=== PATIENT | female | born 2000 | race Caucasian/White ===

== ENCOUNTER → 2022-06-01 | Outpatient (CLI) | payer MEDICAID ==
[~2022-06-01] VITALS: Ht 165 cm; Wt 54.0 kg
== END | disposition home or self-care (01) ==
LOC: PREOP 05:28
PROVIDERS: ATTEND Otolaryngology Otolaryngology/Facial Plastic Surgery
DX: Z01.818 Encounter for other preprocedural examination (principal)

== ENCOUNTER 2022-12-17 21:04 | Emergency (ER) | payer MEDICAID ==
[~2022-12-17] VITALS: Ht 167.7 cm; Wt 59.2 kg
[2022-12-17 21:37] LABS: BILIRUBIN,URINE NEGATIVE (NEGATIVE); CLARITY,URINE CLEAR; COLOR,URINE YELLOW; GLUCOSE, URINE (UA) NEGATIVE (NEGATIVE); KETONES,URINE NEGATIVE (NEGATIVE); LEUKOCYTE ESTERASE ,URINE NEGATIVE (NEGATIVE); NITRITE,URINE NEGATIVE (NEGATIVE); PROTEIN,URINE NEGATIVE (NEGATIVE)
[2022-12-17] MEDS ORDERED: LACTATED RINGERS 1,000 ML IV ONE (21:45)
[2022-12-17 21:51] LABS: BACTERIA,URINE NEGATIVE /HPF; SQUAMOUS EPITHELIAL CELL,UR 0-2 /HPF; WBC,URINE 0-2 /HPF
[2022-12-17 21:54] LABS: AMPHETAMINE SCREEN, URINE NEGATIVE (NEGATIVE); BARBITURATE SCREEN URINE NEGATIVE (NEGATIVE); BENZODIAZEPINES SCREEN URINE NEGATIVE (NEGATIVE); CANNABINOID SCREEN, URINE NEGATIVE (NEGATIVE); COCAINE SCREEN URINE NEGATIVE (NEGATIVE); METHADONE STAT NEGATIVE (NEGATIVE); OPIATE SCREEN URINE NEGATIVE (NEGATIVE); OXYCODONE STAT NEGATIVE (NEGATIVE); PROPOXYPHENE STAT NEGATIVE (NEGATIVE); TRICYCLIC ANTIDEPRESSANTS SCRE NEGATIVE (NEGATIVE)
[2022-12-17 21:56] LABS: BASOPHILS % (AUTO) 0 % (0-10); EOSINOPHILS # (AUTO) 0.1 10^3/uL (0.0-0.3); EOSINOPHILS % (AUTO) 3 % (0-10); HEMATOCRIT 37 % (35-52); HEMOGLOBIN 12.9 g/dL (11.5-16.0); LYMPHOCYTES # (AUTO) 2.2 10^3/uL (1.0-4.0); LYMPHOCYTES % (AUTO) 42 % (12-44); MEAN CORPUSCULAR HEMOGLOBIN 31 pg (25-34); MEAN CORPUSCULAR HGB CONC 35 g/dL (32-36); MEAN CORPUSCULAR VOLUME 90 fL (80-99); MEAN PLATELET VOLUME 9.4 fL (9.0-12.2); MONOCYTES # (AUTO) 0.5 10^3/uL (0.0-1.0); MONOCYTES % (AUTO) 10 % (0-12); NEUTROPHILS # (AUTO) 2.4 10^3/uL (1.8-7.8); NEUTROPHILS % (AUTO) 45 % (42-75); PLATELET COUNT 190 10^3/uL (130-400); WHITE BLOOD COUNT 5.3 10^3/uL (4.3-11.0)
[2022-12-17] MEDS ORDERED: NS 100 ML (IVPB) BAG IV ONE (22:00)
[2022-12-17] MEDS ORDERED: HOLD METFORMIN - RECEIVED CONTRAST 20 ML VIAL IV SCH (22:00)
[2022-12-17] MEDS ORDERED: IOHEXOL 350 MG/ML 100 ML (OMNIPAQUE 350) VIAL IV ONE (22:00)
[2022-12-17 22:05] LABS: ALBUMIN 4.4 GM/DL (3.2-4.5)
[2022-12-17 22:06] LABS: POTASSIUM 4.4 MMOL/L (3.6-5.0)
[2022-12-17 22:07] LABS: CALCIUM 9.5 MG/DL (8.5-10.1)
[2022-12-17 22:08] LABS: TOTAL PROTEIN 7.4 GM/DL (6.4-8.2)
[2022-12-17 22:10] LABS: BILIRUBIN,TOTAL 0.3 MG/DL (0.1-1.0)
[2022-12-17 22:12] LABS: CREATININE SERUM 0.94 MG/DL (0.60-1.30)
[2022-12-17] MEDS ORDERED: KETOROLAC 30 MG/ML VIAL IVP ONE (22:15)
[2022-12-17] MEDS ORDERED: DICY20TA PO (23:39)
[2022-12-17] MEDS ORDERED: ONDA4TAB11 PO (23:39)
[2022-12-17] MEDS ORDERED: PANT40TA2 PO (23:39)
--- NOTE | 2022-12-17 23:40 | ED Abdominal Pain ---
General Chief Complaint: Abdominal/GI Problems Stated Complaint: STOMACH PAIN Nursing Triage Note: Patient c/o Upper Abd. pain that started 3 days ago with nausea and vomiting. Patient states she vomited x 1 in 24hrs, but denies any diarrhea. Patient states she took some Pepto with getting some relief. Patient denies anything making her pain worse. Patient states the pain goes around to her back. Patient denies any urinary symptoms, blood in urine, or Hx. of kidney stones. Patient states the pain is a stabbing pain. Source of Information: Patient History of Present Illness Date Seen by Provider: Dec 17, 2022 Allergies and Home Medications Allergies Coded Allergies: No Known Drug Allergies (Unverified , 12/17/22) Past Mxiqjdf-Ivekhe-Vlgalh Hx Patient Social History Tobacco Use?: No Use of E-Cig and/or Vaping dev: Yes E-Cig or Vaping type used: Nicotine Use of E-Cig and/or Vaping Javier: Current Someday User Substance use?: No Alcohol Use?: No Pt feels they are or have been: No Immunizations Up To Date Influenza Vaccine Up-to-Date: No; Not Current Past Medical History Surgery/Hospitalization HX: Anxiety, Depression, mood disorder. Appy Last Menstrual Period: November 22, 2022 Physical Exam Vital Signs Vital Signs - First Documented 12/17/22 21:16 Temp 34.6 Pulse 101 Resp 14 B/P (MAP) 121/81 (94) Pulse Ox 98 O2 Delivery Room Air Capillary Refill : Less Than 3 Seconds Height/Weight/BMI Height: '" Weight: lbs. oz. kg; 21.00 BMI Method: Progress/Results/Core Measures Results/Orders Lab Results Laboratory Tests Test 12/17/22 21:29 12/17/22 21:39 12/17/22 21:49 Range/Units Urine Color YELLOW Urine Clarity CLEAR Urine pH 6.0 5-9 Urine Specific [place] >=1.030 1.016-1.022 Urine Protein NEGATIVE NEGATIVE Urine Glucose (UA) NEGATIVE NEGATIVE Urine Ketones NEGATIVE NEGATIVE Urine Nitrite NEGATIVE NEGATIVE Urine Bilirubin NEGATIVE NEGATIVE Urine Urobilinogen 0.2 < = 1.0 MG/DL Urine Leukocyte Esterase NEGATIVE NEGATIVE Urine RBC (Auto) NEGATIVE NEGATIVE Urine RBC NONE /HPF Urine WBC 0-2 /HPF Urine Squamous Epithelial Cells 0-2 /HPF Urine Crystals NONE /LPF Urine Bacteria NEGATIVE /HPF Urine Casts NONE /LPF Urine Mucus NEGATIVE /LPF Urine Culture Indicated NO Urine Opiates Screen NEGATIVE NEGATIVE Urine Oxycodone Screen NEGATIVE NEGATIVE Urine Methadone Screen NEGATIVE NEGATIVE Urine Propoxyphene Screen NEGATIVE NEGATIVE Urine Barbiturates Screen NEGATIVE NEGATIVE Ur Tricyclic Antidepressants Screen NEGATIVE NEGATIVE Urine Phencyclidine Screen NEGATIVE NEGATIVE Urine Amphetamines Screen NEGATIVE NEGATIVE Urine Methamphetamines Screen NEGATIVE NEGATIVE Urine Benzodiazepines Screen NEGATIVE NEGATIVE Urine Cocaine Screen NEGATIVE NEGATIVE Urine Cannabinoids Screen NEGATIVE NEGATIVE Urine Test NEGATIVE NEGATIVE White Blood Count 5.3 4.3-11.0 10^3/uL Red Blood Count 4.18 3.80-5.11 10^6/uL Hemoglobin 12.9 11.5-16.0 g/dL Hematocrit 37 35-52 % Mean Corpuscular Volume 90 80-99 fL Mean Corpuscular Hemoglobin 31 25-34 pg Mean Corpuscular Hemoglobin Concent 35 32-36 g/dL Red Cell Distribution Width 12.1 10.0-14.5 % Platelet Count 190 130-400 10^3/uL Mean Platelet Volume 9.4 9.0-12.2 fL Immature Granulocyte % (Auto) 0 % Neutrophils (%) (Auto) 45 42-75 % Lymphocytes (%) (Auto) 42 12-44 % Monocytes (%) (Auto) 10 0-12 % Eosinophils (%) (Auto) 3 0-10 % Basophils (%) (Auto) 0 0-10 % Neutrophils # (Auto) 2.4 1.8-7.8 10^3/uL Lymphocytes # (Auto) 2.2 1.0-4.0 10^3/uL Monocytes # (Auto) 0.5 0.0-1.0 10^3/uL Eosinophils # (Auto) 0.1 0.0-0.3 10^3/uL Basophils # (Auto) 0.0 0.0-0.1 10^3/uL Immature Granulocyte # (Auto) 0.0 0.0-0.1 10^3/uL Sodium Level 141 135-145 MMOL/L Potassium Level 4.4 3.6-5.0 MMOL/L Chloride Level 109 H 98-107 MMOL/L Carbon Dioxide Level 26 21-32 MMOL/L Anion Gap 6 5-14 MMOL/L Blood Urea Nitrogen 18 7-18 MG/DL Creatinine 0.94 0.60-1.30 MG/DL Estimat Glomerular Filtration Rate 89 BUN/Creatinine Ratio 19 Glucose Level 87 70-105 MG/DL Calcium Level 9.5 8.5-10.1 MG/DL Corrected Calcium 9.2 8.5-10.1 MG/DL Total Bilirubin 0.3 0.1-1.0 MG/DL Aspartate Amino Transf (AST/SGOT) 20 5-34 U/L Alanine Aminotransferase (ALT/SGPT) 15 0-55 U/L Alkaline Phosphatase 75 40-136 U/L Total Protein 7.4 6.4-8.2 GM/DL Albumin 4.4 3.2-4.5 GM/DL Amylase Level 36 25-125 U/L Lipase 26 8-78 U/L My Orders Orders - MIKAYLA LYONS DO Drug Screen Stat (Urine) (12/17/22 21:28) Ua Culture If Indicated (12/17/22 21:28) Hcg,Qualitative Urine (12/17/22 21:36) Ed Iv/Invasive Line Start (12/17/22 21:44) Amylase (12/17/22 21:44) Cbc With Automated Diff (12/17/22 21:44) Comprehensive Metabolic Panel (12/17/22 21:44) Lipase (12/17/22 21:44) Ed Iv/Invasive Line Start (12/17/22 21:44) Lactated Ringers (Lr 1000 Ml Iv Solution (12/17/22 21:45) Ct Abdomen/Pelvis W (12/17/22 21:54) Iohexol Injection (Omnipaque 350 Mg/Ml 1 (12/17/22 22:00) Received Contrast (Hold Metformin- Contr (12/17/22 22:00) Ns (Ivpb) (Sodium Chloride 0.9% Ivpb Bag (12/17/22 22:00) Ketorolac Injection (Toradol Injection) (12/17/22 22:15) Medications Given in ED Current Medications Medications Dose Ordered Sig/Sterling Route Start Time Stop Time Status Last Admin Dose Admin Iohexol 100 ml ONCE ONCE IV 12/17/22 22:00 12/17/22 22:01 DC 12/17/22 21:57 80 ML Ketorolac Tromethamine 30 mg ONCE ONCE IVP 12/17/22 22:15 12/17/22 22:16 DC 12/17/22 22:27 30 MG Lactated Ringer's 1,000 ml @ 0 mls/hr Q0M ONCE IV 12/17/22 21:45 12/17/22 21:46 DC 12/17/22 22:01 0 MLS/HR Sodium Chloride 100 ml ONCE ONCE IV 12/17/22 22:00 12/17/22 22:01 DC 12/17/22 21:57 80 ML Vital Signs/I&O 12/17/22 21:16 Temp 34.6 Pulse 101 Resp 14 B/P (MAP) 121/81 (94) Pulse Ox 98 O2 Delivery Room Air Blood Pressure Mean: 94 Progress Progress Note : Progress Note SYMPTOM FREE AT DISMISSAL Departure Impression Primary Impression: RUQ abdominal pain Disposition: HOME, SELF-CARE Condition: Improved Departure-Patient Inst. Decision time for Depature: 23:38 Referrals: GIANCARLO WHITTAKER (PCP/Family) Primary Care Physician Patient Instructions: Abdominal Pain, Adult ED Add. Discharge Instructions: CLEAR LIQUIDS--WATER, BROTH, JELLO, GATORADE BRATS DIET--BANANAS, RICE, APPLESAUCE, TOAST, SALTINES FOLLOW UP WITH YOUR DR IN 2-3 DAYS FOR FURTHER CARE--CALL ON MONDAY MORNING TO SCHEDULE AN APPOINTMENT All discharge instructions reviewed with patient and/or family. Voiced underst anding. Scripts Dicyclomine HCl (Dicyclomine HCl) 20 Mg Tablet 20 MG PO Q6H for Abdominal Pain, #20 TAB Prov: MIKAYLA LYONS DO 12/17/22 Ondansetron (Ondansetron Odt) 4 Mg Tab.rapdis 4 MG PO Q4H for Nausea/Vomiting, #10 TAB Prov: MIKAYLA LYONS DO 12/17/22 Pantoprazole Sodium (Protonix) 40 Mg Tablet.dr 40 MG PO DAILY, #15 TAB Prov: MIKAYLA LYONS DO 12/17/22 MIKAYLA LYONS DO Dec 17, 2022 23:39
[2022-12-17 23:50] VITALS: BP 102/72
--- NOTE | 2022-12-18 06:26 | Diagnostic Imaging Report ---
EXAMINATION: CT abdomen and pelvis with intravenous contrast. TECHNIQUE: Multiple contiguous axial images were obtained through the abdomen and pelvis after the uneventful administration of intravenous contrast. All CT scans use one or more of the following dose optimizing techniques: automated exposure control, MA and/or KvP adjustment based on patient size and exam type or iterative reconstruction. HISTORY: Right upper quadrant pain. Nausea and vomiting. COMPARISON: None available. FINDINGS: The heart is unremarkable. The included lung bases are clear. The liver, spleen, pancreas, adrenal glands, and kidneys have a normal appearance. The gallbladder is decompressed. There is no pathologically enlarged mesenteric or retroperitoneal adenopathy. The bowel loops are nondilated. The appendix is surgically absent. There is no free fluid or free air. No acute osseous abnormalities. Ureters and bladder are grossly normal. There is no free air, loculated collection, or adenopathy in the pelvis. IMPRESSION: 1. No acute abnormalities in the abdomen and pelvis. Agree with overnight report. Dictated by: Dictated on workstation # [id number]
== END 2022-12-17 23:50 | disposition home or self-care (01) ==
LOC: EDUNIT# 21:04 → ER 21:07
DX: R10.11 Right upper quadrant pain (principal); F17.290 Nicotine dependence, other tobacco product, uncomplicated; Z28.310 Unvaccinated for COVID-19
CPT/HCPCS: 36415; 74177; 80053; 80306; 81000; 82150; 83690; 84703; 85025

== ENCOUNTER 2022-12-23 20:21 | Emergency (ER) | payer MEDICAID ==
[~2022-12-23] VITALS: Ht 167.7 cm; Wt 59.0 kg
[~2022-12-23 20:21] MED LIST: DICY20TA PO; ONDA4TAB11 PO; PANT40TA2 PO
[2022-12-23] MEDS ORDERED: LACTATED RINGERS 1,000 ML IV ONE ×2 (20:45→22:15)
--- NOTE | 2022-12-23 20:54 | ED GI ---
General Chief Complaint: Abdominal/GI Problems Stated Complaint: VOMITING Nursing Triage Note: c/o vomitting x3 today, burning in abdomen with ambulation today Source of Information: Patient, Old Records History of Present Illness Date Seen by Provider: Dec 23, 2022 Time Seen by Provider: 20:40 Initial Comments PT ARRIVES VIA POV FROM HOME C/O NAUSEA AND VOMITING SINCE LAST NIGHT STATES SHE VOMITED ONCE LAST NIGHT, AND WOKE UP NAUSEATED AND HAS BEEN NAUSEATED ALL DAY, AND THEN STARTED VOMITING AROUND 1700 THIS EVENING, HAS VOMITED X 3 SINCE 1700 TOOK ZOFRAN AT 2000 TONIGHT. 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 SHE STATES "IT FEELS LIKE A TIGHT FIRE EVERY TIME I WALK" NO DIARRHEA NO URINARY SYMPTOMS AND IS VOIDING A NORMAL AMOUNT NO FEVER LMP 11/22/22 PT WAS SEEN HERE 12/17/22 FOR THIS SAME COMPLAINT, AND WAS HAVING EPIGASTRIC AND RUQ PAIN AT THAT TIME WORK UP INCLUDING LAB AND CT SCAN WERE UNREMARKABLE SHE WAS PRESCRIBED ZOFRAN, PROTONIX AND DICYCLOMINE SHE FOLLOWED UP AT [facility] THIS WEEK AND HAD AN ABDOMINAL ULTRASOUND DONE THERE, AND WAS REPORTEDLY NORMAL NO OTHER TESTS WERE DONE, NO RX GIVEN AND NO FOLLOW UP APPOINTMENT MADE. SHE STATES SHE WAS FEELING BETTER UNTIL LAST NIGHT. SHE ATE BBQ PULLED PORK LAST NIGHT AND THEN STARTED HAVING RETURN OF HER SYMPT OMS STATES SHE HAD BEEN FOLLOWING THE RECOMMENDED DIET UNTIL LAST NIGHT. SHE STATES SHE IS ABLE TO KEEP WATER DOWN, BUT FOOD WON'T STAY DOWN SHE DOES C/O DIZZINESS ON STANDING TONIGHT. SHE HAS HAD PRIOR APPENDECTOMY PCP: [facility] Allergies and Home Medications Allergies Coded Allergies: No Known Drug Allergies (Unverified , 12/17/22) Patient Home Medication List Home Medication List Reviewed: Yes Cefdinir (Cefdinir) 300 Mg Capsule, 300 MG PO BID Prescribed by: MIKAYLA LYONS on 12/23/222212 Dicyclomine HCl (Dicyclomine HCl) 20 Mg Tablet, 20 MG PO Q6H Prescribed by: MIKAYLA LYONS on 12/17/22 2339 Metoclopramide HCl (Reglan) 10 Mg Tablet, 10 MG PO Q6H Prescribed by: MIKAYLA LYONS on 12/23/22 221 Ondansetron (Ondansetron Odt) 4 Mg Tab.rapdis, 4 MG PO Q4H Prescribed by: MIKAYLA LYONS on 12/17/222338 Pantoprazole Sodium (Protonix) 40 Mg Tablet.dr, 40 MG PO DAILY Prescribed by: MIKAYLA LYONS on 12/17/222338 Review of Systems Review of Systems Constitutional: no symptoms reported Respiratory: No Symptoms Reported Cardiovascular: No Symptoms Reported Gastrointestinal: See HPI, Abdominal Pain; Denies Diarrhea; Nausea, Vomiting Genitourinary: No Symptoms Reported Musculoskeletal: no symptoms reported Skin: no symptoms reported Psychiatric/Neurological: No Symptoms Reported Endocrine: No Symptoms Reported Hematologic/Lymphatic: No Symptoms Reported Past Eanqowr-Eloqkz-Jmmspu Hx Patient Social History Tobacco Use?: No Substance use?: No Alcohol Use?: No Pt feels they are or have been: No Immunizations Up To Date First/Initial COVID19 Vaccinat: na Past Medical History Surgery/Hospitalization HX: Anxiety, Depression, mood disorder. Appendectomy Surgeries: Yes Appendectomy Respiratory: No Cardiac: No Neurological: No : No Last Menstrual Period: November 22, 2022 Reproductive Disorders: No Genitourinary: No Gastrointestinal: No Musculoskeletal: No Endocrine: No HEENT: No Cancer: No Psychosocial: Yes Anxiety, Depression Integumentary: No Blood Disorders: No Physical Exam Vital Signs Vital Signs - First Documented 12/23/22 20:43 Temp 36.0 Pulse 97 Resp 16 B/P (MAP) 114/74 (87) Pulse Ox 100 O2 Delivery Room Air Capillary Refill : Less Than 3 Seconds Height/Weight/BMI Height: '" Weight: lbs. oz. kg; 20.00 BMI Method: General Appearance: WD/WN, no apparent distress, thin, other (FLAT AFFECT) Neck: normal inspection Respiratory: normal breath sounds, no respiratory distress, no accessory muscle use Cardiovascular: regular rate, rhythm, no murmur Gastrointestinal: normal bowel sounds, soft; No distended, No guarding, No rebound; tenderness (EPIGASTRIC); No hernia, No mass Extremities: normal inspection Back: no CVA tenderness Neurologic/Psychiatric: heel brusher II-XII nml as tested, no motor/sensory deficits, alert, oriented x 3 Skin: normal color, warm/dry; No rash Progress/Results/Core Measures Results/Orders Lab Results Laboratory Tests Test 12/23/22 20:47 12/23/22 20:50 Range/Units Urine Color YELLOW Urine Clarity CLEAR Urine pH 7.0 5-9 Urine Specific [employer] 1.015 L 1.016-1.022 Urine Protein NEGATIVE NEGATIVE Urine Glucose (UA) NEGATIVE NEGATIVE Urine Ketones NEGATIVE NEGATIVE Urine Nitrite NEGATIVE NEGATIVE Urine Bilirubin NEGATIVE NEGATIVE Urine Urobilinogen 1.0 < = 1.0 MG/DL Urine Leukocyte Esterase 1+ H NEGATIVE Urine RBC (Auto) NEGATIVE NEGATIVE Urine RBC RARE /HPF Urine WBC 2-5 /HPF Urine Squamous Epithelial Cells >50 H /HPF Urine Crystals PRESENT H /LPF Urine Amorphous Sediment FEW INOCENCIA URATES H /LPF Urine Bacteria MODERATE H /HPF Urine Casts NONE /LPF Urine Mucus MODERATE H /LPF Urine Other /HPF Urine Culture Indicated YES Urine Opiates Screen NEGATIVE NEGATIVE Urine Oxycodone Screen NEGATIVE NEGATIVE Urine Methadone Screen NEGATIVE NEGATIVE Urine Propoxyphene Screen NEGATIVE NEGATIVE Urine Barbiturates Screen NEGATIVE NEGATIVE Ur Tricyclic Antidepressants Screen NEGATIVE NEGATIVE Urine Phencyclidine Screen NEGATIVE NEGATIVE Urine Amphetamines Screen NEGATIVE NEGATIVE Urine Methamphetamines Screen NEGATIVE NEGATIVE Urine Benzodiazepines Screen NEGATIVE NEGATIVE Urine Cocaine Screen NEGATIVE NEGATIVE Urine Cannabinoids Screen NEGATIVE NEGATIVE White Blood Count 6.4 4.3-11.0 10^3/uL Red Blood Count 4.00 3.80-5.11 10^6/uL Hemoglobin 12.4 11.5-16.0 g/dL Hematocrit 36 35-52 % Mean Corpuscular Volume 91 80-99 fL Mean Corpuscular Hemoglobin 31 25-34 pg Mean Corpuscular Hemoglobin Concent 34 32-36 g/dL Red Cell Distribution Width 12.0 10.0-14.5 % Platelet Count 173 130-400 10^3/uL Mean Platelet Volume 9.2 9.0-12.2 fL Immature Granulocyte % (Auto) 0 % Neutrophils (%) (Auto) 50 42-75 % Lymphocytes (%) (Auto) 40 12-44 % Monocytes (%) (Auto) 7 0-12 % Eosinophils (%) (Auto) 2 0-10 % Basophils (%) (Auto) 1 0-10 % Neutrophils # (Auto) 3.2 1.8-7.8 10^3/uL Lymphocytes # (Auto) 2.6 1.0-4.0 10^3/uL Monocytes # (Auto) 0.5 0.0-1.0 10^3/uL Eosinophils # (Auto) 0.1 0.0-0.3 10^3/uL Basophils # (Auto) 0.0 0.0-0.1 10^3/uL Immature Granulocyte # (Auto) 0.0 0.0-0.1 10^3/uL Sodium Level 140 135-145 MMOL/L Potassium Level 3.9 3.6-5.0 MMOL/L Chloride Level 107 98-107 MMOL/L Carbon Dioxide Level 26 21-32 MMOL/L Anion Gap 7 5-14 MMOL/L Blood Urea Nitrogen 13 7-18 MG/DL Creatinine 0.86 0.60-1.30 MG/DL Estimat Glomerular Filtration Rate 99 BUN/Creatinine Ratio 15 Glucose Level 67 L 70-105 MG/DL Calcium Level 9.6 8.5-10.1 MG/DL Corrected Calcium 9.3 8.5-10.1 MG/DL Total Bilirubin 0.5 0.1-1.0 MG/DL Aspartate Amino Transf (AST/SGOT) 20 5-34 U/L Alanine Aminotransferase (ALT/SGPT) 18 0-55 U/L Alkaline Phosphatase 75 40-136 U/L Total Protein 7.0 6.4-8.2 GM/DL Albumin 4.4 3.2-4.5 GM/DL Amylase Level 57 25-125 U/L Lipase 50 8-78 U/L My Orders Orders - MIKAYLA LYONS DO Ed Iv/Invasive Line Start (12/23/22 20:41) Amylase (12/23/22 20:41) Cbc With Automated Diff (12/23/22 20:41) Comprehensive Metabolic Panel (12/23/22 20:41) Drug Screen Stat (Urine) (12/23/22 20:41) Lipase (12/23/22 20:41) Ua Culture If Indicated (12/23/22 20:41) Ed Iv/Invasive Line Start (12/23/22 20:41) Lactated Ringers (Lr 1000 Ml Iv Solution (12/23/22 20:45) Ondansetron Injection (Zofran Injectio (12/23/22 21:00) Metoclopramide Injection (Reglan Injecti (12/23/22 21:00) Pantoprazole Injection (Protonix Injecti (12/23/22 21:00) Urine Culture (12/23/22 20:47) Ceftriaxone Iv/Im (Rocephin Iv/Im) (12/23/22 22:15) Ed Iv/Invasive Line Start (12/23/22 22:08) Lactated Ringers (Lr 1000 Ml Iv Solution (12/23/22 22:15) Medications Given in ED Current Medications Medications Dose Ordered Sig/Sterling Route Start Time Stop Time Status Last Admin Dose Admin Ceftriaxone Sodium 1000 mg/ Sodium Chloride 50 ml @ 100 mls/hr ONCE ONCE IV 12/23/22 22:15 12/23/22 22:44 DC 12/23/22 22:21 100 MLS/HR Lactated Ringer's 1,000 ml @ 0 mls/hr Q0M ONCE IV 12/23/22 20:45 12/23/22 20:46 DC 12/23/22 20:57 0 MLS/HR Lactated Ringer's 1,000 ml @ 0 mls/hr Q0M ONCE IV 12/23/22 22:15 12/23/22 22:16 DC 12/23/22 22:21 0 MLS/HR Metoclopramide HCl 10 mg ONCE ONCE IVP 12/23/22 21:00 12/23/22 21:01 DC 12/23/22 20:57 10 MG Ondansetron HCl 4 mg ONCE ONCE IVP 12/23/22 21:00 12/23/22 21:01 DC 12/23/22 20:57 4 MG Pantoprazole 40 mg ONCE ONCE IV 12/23/22 21:00 12/23/22 21:01 DC 12/23/22 20:57 40 MG Vital Signs/I&O 12/23/22 12/23/22 20:43 22:50 Temp 36.0 36.2 Pulse 97 89 Resp 16 16 B/P (MAP) 114/74 (87) 92/62 Pulse Ox 100 100 O2 Delivery Room Air Room Air Blood Pressure Mean: 87 Progress Progress Note : Progress Note GIVEN: -IV FLUIDS -ZOFRAN -PROTONIX -REGLAN -ROCEPHIN LABS INCLUDING CBC, CMP, AMYLASE/LIPASE, UA, HCG, ETOH, UDS ORDERED. UA WITH 1+ LEUKOCYTES, MODERATE BACTERIA ALL OTHER LAB IS NORMAL BLOOD PRESSURE DID DROP INTO 90'S SYSTOLIC (ALSO HAD INCORRECT BP CUFF SIZE ON LEFT ARM, AND PT WAS LAYING ON HER RIGHT SIDE) , BUT NO TACHYCARDIA NEW BP CUFF/APPROPRIATE SIZE, AND PT LAID ON HER BACK, WITH IMPROVED BP READINGS. PT STATES SHE FEELS MUCH BETTER--SHE STATES THE REGLAN SEEMS TO HELP MORE THAN THE ZOFRAN. NO VOMITING DURING ER STAY PT IS ANXIOUS TO GO HOME DISCUSSED TEST RESULTS, WILL HAVE PT CONTINUE THE PREVIOUSLY PRESCRIBED MEDICATIONS AND WILL ADD REGLAN, WELL ANTIBIOTIC FOR UTI. DISCUSSED DIET AND ADVISED HER TO STAY ON CLEAR LIQUIDS AND BRATS DIET UNTIL SHE IS RECHECKED DISCUSSED POSSIBLE NEED FOR ADDITIONAL OUTPATIENT TESTS INCLUDING HIDA SCAN AND POSSIBLY AN EGD IF HER SYMPTOMS PERSIST. WILL REFER TO DR. PACHECO, GENERAL SURGEON, FOR FURTHER EVALUATION OF HER SYMPTOMS DISCUSSED RETURN PRECAUTIONS WITH PT REVIEWED PRIOR RECORDS --SINGLE ER VISIT 12/17/22 Departure Impression Primary Impression: Epigastric abdominal pain Additional Impressions: Nausea and vomiting Urinary tract infection Dehydration Disposition: 01 HOME, SELF-CARE Condition: Improved Departure-Patient Inst. Decision time for Depature: 22:10 Referrals: TOD PACHECO AMBER D ARNP (PCP) Primary Care Physician Patient Instructions: Abdominal Pain, Adult ED, Nausea and Vomiting, Adult ED, Urinary Tract Infection, Adult (DC), Dehydration, Adult ED Add. Discharge Instructions: CLEAR LIQUIDS, SIPS AT A TIME--WATER, BROTH, JELLO, GATORADE--DRINK ENOUGH SO YOU ARE URINATING EVERY 2-3 HOURS WHILE AWAKE WHEN YOUR NAUSEA IS BETTER, ADD BRATS DIET TO CLEAR LIQUIDS--BANANAS, RICE, APPLESAUCE, TOAST, SALTINES CONTINUE THE ZOFRAN, DICYCLOMINE, AND PROTONIX PRESCRIBED FOLLOW UP WITH DR. PACHECO, SURGEON, NEXT WEEK FOR FURTHER CARE. RETURN TO ER IF SYMPTOMS WORSEN All discharge instructions reviewed with patient and/or family. Voiced understanding. Scripts Cefdinir (Cefdinir) 300 Mg Capsule 300 MG PO BID, #20 CAP Prov: DOMO LYONSA K DO 12/23/22 Metoclopramide HCl (Reglan) 10 Mg Tablet 10 MG PO Q6H for Nausea/Vomiting, #15 TAB Prov: DOMO LYONSA K DO 12/23/22 MIKAYLA LYONS DO Dec 23, 2022 20:54
[2022-12-23] MEDS ORDERED: ONDANSETRON 4 MG/2 ML (SDV) Z0FRAN IVP ONE (21:00)
[2022-12-23] MEDS ORDERED: PANTOPRAZOLE 40 MG (PROTONIX) VIAL IV ONE (21:00)
[2022-12-23] MEDS ORDERED: METOCLOPRAMIDE INJ 10 MG/2 ML (REGLAN) IVP ONE (21:00)
[2022-12-23 21:01] LABS: BILIRUBIN,URINE NEGATIVE (NEGATIVE); CLARITY,URINE CLEAR; COLOR,URINE YELLOW; GLUCOSE, URINE (UA) NEGATIVE (NEGATIVE); KETONES,URINE NEGATIVE (NEGATIVE); LEUKOCYTE ESTERASE ,URINE 1+ (NEGATIVE); NITRITE,URINE NEGATIVE (NEGATIVE); PROTEIN,URINE NEGATIVE (NEGATIVE)
[2022-12-23 21:07] LABS: BASOPHILS % (AUTO) 1 % (0-10); EOSINOPHILS # (AUTO) 0.1 10^3/uL (0.0-0.3); EOSINOPHILS % (AUTO) 2 % (0-10); HEMATOCRIT 36 % (35-52); HEMOGLOBIN 12.4 g/dL (11.5-16.0); LYMPHOCYTES # (AUTO) 2.6 10^3/uL (1.0-4.0); LYMPHOCYTES % (AUTO) 40 % (12-44); MEAN CORPUSCULAR HEMOGLOBIN 31 pg (25-34); MEAN CORPUSCULAR HGB CONC 34 g/dL (32-36); MEAN CORPUSCULAR VOLUME 91 fL (80-99); MEAN PLATELET VOLUME 9.2 fL (9.0-12.2); MONOCYTES # (AUTO) 0.5 10^3/uL (0.0-1.0); MONOCYTES % (AUTO) 7 % (0-12); NEUTROPHILS # (AUTO) 3.2 10^3/uL (1.8-7.8); NEUTROPHILS % (AUTO) 50 % (42-75); PLATELET COUNT 173 10^3/uL (130-400); WHITE BLOOD COUNT 6.4 10^3/uL (4.3-11.0)
[2022-12-23 21:25] LABS: ALBUMIN 4.4 GM/DL (3.2-4.5); POTASSIUM 3.9 MMOL/L (3.6-5.0)
[2022-12-23 21:25] LABS: AMPHETAMINE SCREEN, URINE NEGATIVE (NEGATIVE); BARBITURATE SCREEN URINE NEGATIVE (NEGATIVE); BENZODIAZEPINES SCREEN URINE NEGATIVE (NEGATIVE); CANNABINOID SCREEN, URINE NEGATIVE (NEGATIVE); COCAINE SCREEN URINE NEGATIVE (NEGATIVE); METHADONE STAT NEGATIVE (NEGATIVE); OPIATE SCREEN URINE NEGATIVE (NEGATIVE); OXYCODONE STAT NEGATIVE (NEGATIVE); PROPOXYPHENE STAT NEGATIVE (NEGATIVE); TRICYCLIC ANTIDEPRESSANTS SCRE NEGATIVE (NEGATIVE)
[2022-12-23 21:26] LABS: CALCIUM 9.6 MG/DL (8.5-10.1)
[2022-12-23 21:29] LABS: BILIRUBIN,TOTAL 0.5 MG/DL (0.1-1.0)
[2022-12-23 21:30] LABS: AMORPHOUS SEDIMENT,UR FEW AMOR URATES /LPF; RBC,URINE RARE /HPF; SQUAMOUS EPITHELIAL CELL,UR >50 /HPF
[2022-12-23 21:31] LABS: CREATININE SERUM 0.86 MG/DL (0.60-1.30)
[2022-12-23 21:33] LABS: BACTERIA,URINE MODERATE /HPF
[2022-12-23] MEDS ORDERED: METO-310 PO (22:13)
[2022-12-23] MEDS ORDERED: CEFD300C3 PO (22:13)
[2022-12-23] MEDS ORDERED: cefTRIAXone IV/IM 1,000 MG in NS (IVPB) 50 ML IV ONE (22:15)
[2022-12-23 22:50] VITALS: BP 92/62
== END 2022-12-23 22:50 | disposition home or self-care (01) ==
LOC: EDUNIT# 20:21 → ER 20:23
DX: N39.0 Urinary tract infection, site not specified (principal); E86.0 Dehydration; R11.2 Nausea with vomiting, unspecified; Z28.310 Unvaccinated for COVID-19; Z90.49 Acquired absence of other specified parts of digestive tract
CPT/HCPCS: 36415; 80053; 80306; 81000; 82150; 83690; 85025; 87088

== ENCOUNTER 2023-04-23 22:07 | Emergency (ER) | payer SELFPAY ==
[~2023-04-23] VITALS: Ht 167.7 cm; Wt 63.5 kg
[~2023-04-23 22:07] MED LIST changes: +CEFD300C3 PO; +CEPH500T PO; +METO-310 PO
[2023-04-23 23:57] LABS: BILIRUBIN,URINE NEGATIVE (NEGATIVE); CLARITY,URINE CLEAR; COLOR,URINE YELLOW; GLUCOSE, URINE (UA) NEGATIVE (NEGATIVE); KETONES,URINE NEGATIVE (NEGATIVE); LEUKOCYTE ESTERASE ,URINE NEGATIVE (NEGATIVE); NITRITE,URINE NEGATIVE (NEGATIVE); PH,URINE 5.5 (5-9); PROTEIN,URINE NEGATIVE (NEGATIVE)
[2023-04-23 23:58] LABS: BACTERIA,URINE MODERATE /HPF
--- NOTE | 2023-04-24 00:40 | ED General ---
General Chief Complaint: - Reproductive Stated Complaint: CRAMPING/VAG BLEEDING/VOMITING/NAUSEA Nursing Triage Note: PT A&OX3; PT AMBULATES TO ROOM WITHOUT ASSISTANCE OF ER STAFF; PT ADVISES THAT SHE HAD HER CONTROL IMPLANT REMOVED APPROX 1 WK AGO; SINCE HAVING IT REMOVED, PT HAS HAD INTERMITTENT CRAMPING, SPOTTING, NAUSEA/VOMITING; PT ALSO REPORTS THAT SHE HAS TAKEN 3 HOME TESTS AND 2 RETURNED POSITIVE BUT THE MOST RECENT WAS NEGATIVE Source of Information: Patient (DARIA BACH) History of Present Illness Date Seen by Provider: Apr 24, 2023 Time Seen by Provider: 11:30 Initial Comments This is a 22 yo female that presents with heavy vaginal bleeding, cramping, nausea, and vomiting for 7 days that started after having nexplanon insertable removed from arm. Vaginal bleeding required changing of pad q2hrs until yesterday when the bleeding turned to spotting. The cramping is constant but pain worsens intermittently. Pt is sexually active with 1 partner for last year and has had unprotected intercourse multiple times in the last week. LMP was 04/07. Pt states that she has had 2 positive at home tests in the last week and 1 negative test most recently. Ibuprofen and Tylenol were tried with minimal relief. Heat pad helps with pain. Cramping pain is rated as 3/10 normally and 7/10 when cramping worsens. Pt has noticed clear/white vaginal discharge with "sour" smell for last 4 days. No history of STI or . Does have h/o UTIs. Denies fever, shortness of breath, sore throat, runny nose, chest pain, diarrhea, constipation, hematuria, hematemesis, hematochezia. Pt has urinary frequency in last week. Timing/Duration: 1 Week Severity: Mild (DARIA BACH) Allergies and Home Medications Allergies Coded Allergies: No Known Drug Allergies (Unverified , 12/17/22) Patient Home Medication List Home Medication List Reviewed: Yes (BINU WU MD) Cefdinir (Cefdinir) 300 Mg Capsule, 300 MG PO BID Prescribed by: MIKAYLA LYONS on 12/23/222212 Cephalexin (Cephalexin) 500 Mg Tablet, 500 MG PO BID Prescribed by: HERNAN ROBERTSON on 04/04/232233 Dicyclomine HCl (Dicyclomine HCl) 20 Mg Tablet, 20 MG PO Q6H Prescribed by: MIKAYLA LYONS on 12/17/222338 Metoclopramide HCl (Reglan) 10 Mg Tablet, 10 MG PO Q6H Prescribed by: MIKAYLA LYONS on 12/23/222212 Ondansetron (Ondansetron Odt) 4 Mg Tab.rapdis, 4 MG PO Q4H Prescribed by: MIKAYLA LYONS on 12/17/222338 Pantoprazole Sodium (Protonix) 40 Mg Tablet.dr, 40 MG PO DAILY Prescribed by: MIKAYLA LYONS on 12/17/222338 Review of Systems Review of Systems Constitutional: see HPI EENTM: see HPI Respiratory: see HPI Cardiovascular: see HPI Gastrointestinal: see HPI Genitourinary: see HPI Musculoskeletal: no symptoms reported Skin: no symptoms reported Psychiatric/Neurological: No Symptoms Reported (DARIA BACH) Past Qtoothe-Jcgsyc-Xwxzhq Hx Patient Social History Tobacco Use?: No Use of E-Cig and/or Vaping dev: Yes E-Cig or Vaping type used: Nicotine Use of E-Cig and/or Vaping Javier: Current Someday User Substance use?: No Alcohol Use?: No Pt feels they are or have been: No (DARIA BACH) Immunizations Up To Date Influenza Vaccine Up-to-Date: No; Not Current First/Initial COVID19 Vaccinat: N/A Second COVID19 Vaccination Maico: na Third COVID19 Vaccination Date: na (DARIA BACH) Past Medical History Surgery/Hospitalization HX: APPENDECTOMY Surgeries: Yes Appendectomy Respiratory: No Cardiac: No Neurological: No Last Menstrual Period: Apr 07, 2023 Reproductive Disorders: No Genitourinary: No Gastrointestinal: No Musculoskeletal: No Endocrine: No HEENT: No Cancer: No Psychosocial: Yes Anxiety, Depression Integumentary: No Blood Disorders: No (DARIA BACH) Physical Exam Vital Signs Vital Signs - First Documented 04/23/23 22:45 Temp 37.0 Pulse 86 Resp 16 B/P (MAP) 123/72 (89) Pulse Ox 99 O2 Delivery Room Air (BINU WU MD) Vital Signs Capillary Refill : Less Than 3 Seconds (DARIA BACH) Height, Weight, BMI Height: '" Weight: lbs. oz. kg; 22.00 BMI Method: General Appearance: No Apparent Distress, WD/WN HEENT: PERRL/EOMI, Pharynx Normal (no erythema or lesions), Moist Mucous Membranes Neck: Full Range of Motion, Non Tender, Supple Respiratory: Chest Non Tender, Lungs Clear, No Accessory Muscle Use, No Respiratory Distress Cardiovascular: Regular Rate, Rhythm, No Edema, No Murmur Gastrointestinal: Normal Bowel Sounds, No Organomegaly, No Pulsatile Mass, Soft, Tenderness (RLQ, LLQ, and suprapubic region. ) Back: No CVA Tenderness, No Vertebral Tenderness Neurologic/Psychiatric: Alert, Oriented x3, No Motor/Sensory Deficits, Normal Mood/Affect, robotic welder II-XII Norm as Tested Skin: Normal Color, Warm/Dry (ISREAL,DARIA) Progress/Results/Core Measures Suspected Sepsis SIRS Temperature: Pulse: 86 Respiratory Rate: 16 Blood Pressure 123 /72 Mean: 89 (ISREAL,DARIA) Results/Orders Lab Results Laboratory Tests Test 04/23/23 22:55 Range/Units Urine Color YELLOW Urine Clarity CLEAR Urine pH 5.5 5-9 Urine Specific [place] >=1.030 1.016-1.022 Urine Protein NEGATIVE NEGATIVE Urine Glucose (UA) NEGATIVE NEGATIVE Urine Ketones NEGATIVE NEGATIVE Urine Nitrite NEGATIVE NEGATIVE Urine Bilirubin NEGATIVE NEGATIVE Urine Urobilinogen 0.2 < = 1.0 MG/DL Urine Leukocyte Esterase NEGATIVE NEGATIVE Urine RBC (Auto) NEGATIVE NEGATIVE Urine RBC NONE /HPF Urine WBC 2-5 /HPF Urine Squamous Epithelial Cells 10-25 H /HPF Urine Crystals NONE /LPF Urine Bacteria MODERATE H /HPF Urine Casts NONE /LPF Urine Mucus MODERATE H /LPF Urine Culture Indicated YES (BINU WU MD) My Orders Orders - BINU WU MD Urine Bedside (04/23/23 23:22) Ua Culture If Indicated (04/23/23 23:23) Wet Prep (04/23/23 23:25) Neis [place] Dna Urine Test (04/23/23 23:25) Chlamydia Trachomatis Urine (04/23/23 23:25) Urine Culture (04/23/23 22:55) (BINU WU MD) Vital Signs/I&O 04/23/23 22:45 Temp 37.0 Pulse 86 Resp 16 B/P (MAP) 123/72 (89) Pulse Ox 99 O2 Delivery Room Air (BINU WU MD) Vital Signs/I&O Capillary Refill : Less Than 3 Seconds (DARIA BACH) Blood Pressure Mean: 89 Progress Note : Time: 00:45 (BINU WU MD) Departure Impression Primary Impression: Dysfunctional uterine bleeding Additional Impression: Bacterial vaginosis Disposition: HOME, SELF-CARE Condition: Stable Departure-Patient Inst. Decision time for Depature: 00:45 (BINU WU MD) Referrals: GIANCARLO WHITTAKER (PCP/Family) Primary Care Physician Patient Instructions: Bacterial Vaginosis ED Add. Discharge Instructions: You can take alkf-fwp-naqqhqi generic Aleve 2 pills in the morning and 2 pills at night for cramps. This will also decrease how heavy her bleeding is. Always take this medication with food. Start metronidazole 100 mg 2 times a day for the next 7 days. This will treat "bacterial vaginosis" which is just an abnormal growth of normal bacteria in the vagina that can cause discharge. This can also cause discomfort with urination. Do not drink any alcohol while taking the metronidazole. It can cause abdominal cramping and vomiting. If you develop fever, worsening burning with urination, any other emergent, concerning symptoms please return to the emergency room for reevaluation. Please follow-up with your primary care provider Scripts Metronidazole (Metronidazole) 500 Mg Tablet 500 MG PO BID, #14 TAB 0 Refills Prov: BINU UW MD 04/24/23 DARIA BACH Apr 24, 2023 00:40 BINU WU MD Apr 24, 2023 00:47
[2023-04-24] MEDS ORDERED: METR-145 PO (00:47)
[2023-04-24 00:50] VITALS: BP 116/69
== END 2023-04-24 00:51 | disposition home or self-care (01) ==
LOC: EDUNIT# 22:07 → ER 22:10
DX: N93.8 Other specified abnormal uterine and vaginal bleeding (principal); N76.0 Acute vaginitis; F17.290 Nicotine dependence, other tobacco product, uncomplicated; Z32.02 Encounter for pregnancy test, result negative
CPT/HCPCS: 36415; 81000; 84703; 87088; 87210; 87491; 87591; 99282